=== PATIENT | female | born 1940 | race Caucasian/White ===

== ENCOUNTER 2017-04-25 02:24 | Inpatient (IN) | payer OTHER, MEDICAID, MEDICARE ==
[~2017-04-25] VITALS: Ht 152.4 cm; Wt 64.0 kg
[2017-04-25 04:05] VITALS: BP 164/82; PULSE 85; RESP 16; TEMP 98.3; O2SAT 96
[2017-04-25] MEDS ORDERED: MAGNESIUM HYDROXIDE SUSP 30 ML CUP PO PRN (04:30)
[2017-04-25] MEDS ORDERED: LORazepam 2 MG/ML VIAL - age > 65 yrs IM PRN (04:30)
[2017-04-25] MEDS ORDERED: LORazepam 0.5 MG TAB age > 65 yrs PO PRN (04:30)
[2017-04-25] MEDS ORDERED: ALUMINUM/MAGNESIUM/SIMETH 30 ML CUP PO PRN (04:30)
[2017-04-25] MEDS ORDERED: PILL SPLITTER OTHER PRN (04:30)
[2017-04-25] MEDS ORDERED: ACETAMINOPHEN 325 MG TAB PO PRN ×2 (04:30→10:00)
[2017-04-25] MEDS ORDERED: DEXTROSE 50% IN WATER 50 ML VIAL(D50) IV PUSH PRN (08:30)
[2017-04-25] MEDS ORDERED: GLUCAGON 1 MG/ML VIAL OTHER PRN (08:30)
[2017-04-25] MEDS ORDERED: hydrOXYzine HCL 50 MG TAB PO PRN (10:00)
--- NOTE | 2017-04-25 10:15 | HHI.HP ---
Provisional Diagnosis Admission Date Apr 25, 2017 at 03:20 [place] I. Major depressive disorder recurrent severe f 33.2 Certification of Person's Competence To Provide Express and Informed Consent I have personally examined Apoorva Jordan , a person being served at [facility] on, Apr 25, 2017 09:54. Express and informed consent means consent voluntarily given in writing, by a competent person, after sufficient explanation and disclosure of the subject matter involved to enable the person to make a knowing and willful decision without any element of force, fraud, deceit, duress, or other form of constraint or coercion. This person is 18 years of age or older, is not now known to be incompetent to consent to treatment with a guardian advocate, and does not have a health care surrogate or proxy currently making medical treatment decisions. I have found this person to be one of the following: [] Competent to provide express and informed consent, as defined above, for voluntary admission to this facility and is competent to provide express and informed consent for treatment. He/she has the consistent capacity to make well reasoned, willful, and knowing decisions concerning his or her medical or mental health treatment. The person fully and consistently understands the purpose of the admission for examination/placement and is fully capable of personally exercising all rights assured under [place] [] Incompetent to provide express and informed consent to voluntary admission, and this is incompetent to provide express and informed consent to treatment. The person must be transferred to involuntary status and a petition for a guardian advocate filed with the Circuit Court. [xxx] Refusing to provide express and informed consent to voluntary admission but is competent to provide express and informed consent for treatment. The person must be discharged or transferred to involuntary status. Form shall be completed within 24 hours of a person's arrival at the receiving facility and filed in the clinical record of each person: 1. Admitted on a voluntary basis 2. Permitted to provide express and informed consent to his/her own treatment 3. Allowed to transfer from involuntary to voluntary status 4. Prior to permitting a person to consent to his or her own treatment after having been previously found incompetent to consent to treatment. History of Present Illness Capacity: Lacks Capacity (patient lacks capacity to sign for admission, patient has capacity to sign for medications) Psych Chief Complaint: patient depressed but compliant medications [place] overdosed on all her me HPI Patient is 76 year-old female who comes in under Kidd act signed by Shanae Granda from [facility] dated 04/24/17 and 18 over 3 hours that document reviewed and is states that patient through all of her psych meds away today patient denies this but pretends not to be able to speak Slovenian when probed further despite whole interview in Slovenian. 2 grandkids at bedside confirms patient threw away her psych meds. She has told them that she plans to lock herself in a closet and not come out. Told 3 grandkids that she plans to take all of her pills. Patient seen screened in that facility urine toxicology negative alcohol level negative. Patient transferred here for further care. This is patient's first contact with [facility]. At the present time patient sitting quietly in her room counselor Gabby present throughout session. Patient calm pleasant speaking broken Slovenian. She is distraught and depressed. It appears the patient came down here from the [facility] last May after suffering a stroke and having a pacemaker placed in her. She is living now with her daughter and daughter's granddaughter and as patient states 2 or 3 great- grandchildren. Patient states she does not speak much to her daughter. Patient became more tearful when she talked with the of her . Above that affected her. She denies suicidality to me. Vague about any voices. She is vague about past psychiatric hospitalizations in the [facility] that appears somebody put her on Lamictal and trazodone. States she did have some positive results from that. In any event at the present time patient does meet criteria for involuntary psychiatric hospitalization under the Kidd act I'll do first opinion request second opinion left with this time she does have capacity to sign for medications. We need to gather further information and confirm the accuracy of are present information. Will call patient's family attempt to arrange a meeting for about 1 PM tomorrow afternoon the meantime patient will be admitted. We will a hospitalist consult will thus. Above PT also see her will out of the standard medications would refrain from any psychotropics into her gather further information. Review of Systems ROS Limitations: Altered Mental Status Constitutional: DENIES: Diaphoretic episodes, Fatigue, Fever, Weight gain, Weight loss, Chills, Dizziness, Change in appetite, Night Sweats Endocrine: DENIES: Abnorml menstrual pattern, Heat/cold intolerance, Polydipsia , Polyuria, Polyphagia Ears, nose, mouth, throat: DENIES: Tinnitus, Hearing loss, Vertigo, Nasal discharge, Oral lesions, Throat pain, Hoarseness, Ear Pain, Running Nose, Epistaxis, Sinus Pain, Toothache, Odynophagia Respiratory: DENIES: Apneas, Cough, Snoring, Wheezing, Hemoptysis, Sputum production, Shortness of breath Cardiovascular: DENIES: Chest pain, Palpitations, Syncope, Dyspnea on Exertion , PND, Lower Extremity Edema, Orthopnea, Claudication Gastrointestinal: DENIES: Abdominal pain, Black stools, Bloody stools, Constipation, Diarrhea, Nausea, Vomiting, Difficulty Swallowing, Anorexia Genitourinary: DENIES: Abnormal vaginal bleeding, Dysmenorrhea, Dyspareunia, Sexual dysfunction, Urinary frequency, Urinary incontinence, Urgency, Hematuria , Dysuria, Nocturia, Vaginal discharge Musculoskeletal: DENIES: Joint pain, Muscle aches, Stiffness, Joint Swelling, Back pain, Neck pain Integumentary: DENIES: Abnormal pigmentation, Pruritus, Rash, Nail changes, Breast masses, Breast skin changes, Nipple discharge Hematologic/lymphatic: DENIES: Bruising, Lymphadenopathy Immunologic/allergic: DENIES: Eczema, Urticaria Neurologic: DENIES: Abnormal gait, Headache, Localized weakness, Paresthesias, Seizures, Speech Problems, Tremor, Poor Balance Psychiatric: COMPLAINS OF: Anxiety, Depression, Suicidal Ideation (made vague statements) Past Psych History Psychological trauma history Increased depression after of Violence risk - others (6 mos) Low Violence risk - self (6 mos) Made vague suicidal statement Substance Abuse History Drugs/Alcohol past 12 months None documented Past Family Social History Coded Allergies: Iodinated Contrast- Oral and IV Dye (Verified Allergy, Severe, 04/25/17) erythromycin base (Verified Allergy, Severe, 04/25/17) latex (Verified Allergy, Severe, 04/25/17) Past Medical History History CVA with pacemaker Current Medications Medications (Trade) Dose Ordered Sig/Juice Route Start Time Stop Time Status Last Admin (Ativan) 0.5 mg Q12H PRN PO 04/25/17 04:30 (Ativan Inj) 0.5 mg Q12H PRN IM 04/25/17 04:30 (Desyrel) 25 mg HS PRN PO 04/25/17 04:30 (Tylenol) 650 mg Q4H PRN PO 04/25/17 04:30 (Milk Of Magnesia Liq) 30 ml DAILY PRN PO 04/25/17 04:30 (Mag-Al Plus Susp Liq) 30 ml Q6H PRN PO 04/25/17 04:30 (Pill Splitter) 1 ea UNSCH PRN OTHER 04/25/17 04:30 (D50w (Vial) Inj) 50 ml UNSCH PRN IV PUSH 04/25/17 08:30 (Glucagon Inj) 1 mg UNSCH PRN OTHER 04/25/17 08:30 (NovoLOG SUPPLEMENTAL SCALE) 1 ACHS SLIDING SCALE SQ 04/25/17 12:00 Family Psych History Supposedly since psychiatric services in [place] Social History Patient lives with daughter and son-in-law granddaughter and great grandkids Patient's Strengths (min. 2) Patient verbal labile access healthcare Physical Exam Patient seen screened in [place] refreshed from referral hospital when medically clear. At this time patient sitting quietly in her room with staff as mentioned above. She is in no acute distress, she is in no respiratory distress, no complaints of abdominal pain. Patient moves all 4 extremities without difficulty though she does walk with a walker Vital Signs Vital Signs Date Time Temp Pulse Resp B/P (MAP) Pulse Ox O2 Delivery O2 Flow Rate FiO2 04/25/17 04:05 98.3 85 16 164/82 (109) 96 I/O 04/25/17 04/25/17 04/25/17 07:59 15:59 23:59 Intake Total 360 ml Balance 360 ml Mental Status Examination Appearance: Appropriate Consciousness: Alert Orientation: Person, Place Motor Activity: Other (patient uses walker) Speech: Slow (patient speaking broken Slovenian heavy Gibraltarian accent) Language: Other (mainly Gibraltarian-speaking) Fund of Knowledge: Poor Attention and Concentration: Other (fair) Memory: Impaired Mood: Sad Affect: Other (decreased range and intensity) Thought Process & Associations: Linear Thought Content: Appropriate Hallucination Type: None (denies) Delusion Type: None Suicidal Ideation: Yes (made vague suicidal statements to family) Suicidal Plan: Yes (stated to take all her pills) Suicidal Intention: Yes ([place] take her pills) Homicidal Ideation: No Homicidal Plan: No Homicidal Intention: No Insight: Poor Judgment: Poor Assessment & Plan Problem List: (1) Major depressive disorder, recurrent episode, severe ICD Codes: F33.2 - Major depressive disorder, recurrent severe without psychotic features Assessment & Plan Estimated LOS: days this time patient does meet criteria for involuntary psychiatric hospitalization I'll do first opinion request second opinion. Though I do feel she does have capacity to sign for medication. Hospitalist consult will less attempt to reach patient's family tray for family meeting tomorrow via further information concerning this nice lady Discharge Planning To be determined probable return to family Request HC Surrog/Guard Advoc?: No Juan Jose Vaughan MD Apr 25, 2017 10:15
--- NOTE | 2017-04-25 10:19 | PD.CONS ---
HPI Service [facility] Hospitalists Consult Requested By DR POWERS Reason for Consult MEDICAL MANAGEMENT Primary Care Physician Unknown Diagnoses: History of Present Illness Patient is a 76-year-old female. Brought in initially to the hospital at [facility]. Was evaluated there. Supposedly has a history of schizophrenia and bipolar. Had recently been started on trazodone 50 mg half a tablet at bedtime and Lamictal at bedtime was doing much better than family noted the patient seemed to realize that she was getting better and then decided that she will no longer take these medications.. Patient was Kidd acted. SHe was transferred to [facility] psychiatric facility for evaluation with psychiatry Was also noted that she flushed her medications down the toilet and that she did not care that she expressed a desire to kill her self to her grandchildren and daughter and then patient locked herself in a closet and wanted to kill herself Has depression Review of Systems Constitutional: DENIES: Diaphoretic episodes, Fatigue, Fever, Weight gain, Weight loss, Chills, Dizziness, Change in appetite Endocrine: DENIES: Abnorml menstrual pattern, Heat/cold intolerance, Polydipsia Eyes: DENIES: Blurred vision, Diplopia, Eye inflammation, Eye pain, Vision loss Ears, nose, mouth, throat: DENIES: Tinnitus, Hearing loss, Vertigo, Nasal discharge, Oral lesions Respiratory: DENIES: Apneas, Cough, Snoring, Wheezing, Hemoptysis, Sputum production Cardiovascular: DENIES: Chest pain, Palpitations, Syncope, Dyspnea on Exertion , PND, Lower Extremity Edema Gastrointestinal: DENIES: Abdominal pain, Black stools, Bloody stools, Constipation, Diarrhea, Nausea Genitourinary: DENIES: Abnormal vaginal bleeding, Dysmenorrhea, Dyspareunia Musculoskeletal: DENIES: Joint pain, Muscle aches, Stiffness, Joint Swelling, Back pain Integumentary: DENIES: Abnormal pigmentation, Pruritus, Rash, Nail changes Hematologic/lymphatic: DENIES: Bruising, Lymphadenopathy Immunologic/allergic: DENIES: Eczema, Urticaria Neurologic: DENIES: Abnormal gait, Headache, Localized weakness, Paresthesias, Seizures Psychiatric: COMPLAINS OF: Anxiety, Confusion, Depression Past Family Social History Allergies: Coded Allergies: Iodinated Contrast- Oral and IV Dye (Verified Allergy, Severe, 04/25/17) erythromycin base (Verified Allergy, Severe, 04/25/17) latex (Verified Allergy, Severe, 04/25/17) Past Medical History Diabetes mellitus HYPERCholesterolemia hypertension history of hysterectomy decreased peripheral circulation stroke pacemaker Past Surgical History Pacemaker and hysterectomy Reported Medications Unknown Active Ordered Medications Current Medications Lorazepam (Ativan) 0.5 mg Q12H PRN PO MODERATE TO SEVERE ANXIETY; Start at 04:30 Lorazepam (Ativan Inj) 0.5 mg Q12H PRN IM MODERATE TO SEVERE ANXIETY; Start at 04:30 Trazodone HCl (Desyrel) 25 mg HS PRN PO INSOMNIA; Start 04/25/17 at 04:30 Acetaminophen (Tylenol) 650 mg Q4H PRN PO Pain 1-5 or Temp >101F; Start at 04:30 Magnesium Hydroxide (Milk Of Magnesia Liq) 30 ml DAILY PRN PO CONSTIPATION; Start 04/25/17 at 04:30 Al Hydrox/Mg Hydrox/Simethicone (Mag-Al Plus Susp Liq) 30 ml Q6H PRN PO DYSPEPSIA; Start 04/25/17 at 04:30 Miscellaneous (Pill Splitter) 1 ea UNSCH PRN OTHER SEE LABEL COMMENTS; Start 04/25/17 at 04:30 Dextrose (D50w (Vial) Inj) 50 ml UNSCH PRN IV PUSH HYPOGLYCEMIA-SEE COMMENTS; Start 04/25/17 at 08:30 Glucagon (Glucagon Inj) 1 mg UNSCH PRN OTHER HYPOGLYCEMIA-SEE COMMENTS; Start 04/25/17 at 08:30 Insulin Aspart (NovoLOG SUPPLEMENTAL SCALE) 1 ACHS SLIDING SCALE SQ ; Start at 12:00 Acetaminophen (Tylenol) 650 mg Q4H PRN PO Pain 1-5 or Temp >101F; Start at 10:00; Status UNV Hydroxyzine HCl (Atarax) 50 mg Q6H PRN PO ANXIETY; Start 04/25/17 at 10:00; Status UNV Family History Possible depression in family Probable history of hypertension and diabetes in the family Social History Lives locally with family in [place] Physical Exam Vital Signs Vital Signs Date Time Temp Pulse Resp B/P (MAP) Pulse Ox O2 Delivery O2 Flow Rate FiO2 04/25/17 04:05 98.3 85 16 164/82 (109) 96 Physical Exam GENERAL: This is a well-nourished, well-developed patient, in no apparent distress. SKIN: No rashes, ecchymoses or lesions. Cool and dry. HEAD: Atraumatic. Normocephalic. No temporal or scalp tenderness. EYES: Pupils equal round and reactive. Extraocular motions intact. No scleral icterus. No injection or drainage. Wears glasses ENT: Nose without bleeding, purulent drainage or septal hematoma. Throat without erythema, tonsillar hypertrophy or exudate. Uvula midline. Airway patent. Tongue is midline NECK: Trachea midline. No JVD or lymphadenopathy. Supple, nontender, no meningeal signs. CARDIOVASCULAR: Regular rate and rhythm without murmurs, gallops, or rubs. S1 and S2 no S3 or S4 RESPIRATORY: Clear to auscultation. Breath sounds equal bilaterally. No wheezes , rales, or rhonchi. GASTROINTESTINAL: Abdomen soft, non-tender, nondistended. No hepato-splenomegaly , or palpable masses. No guarding. MUSCULOSKELETAL: Extremities without clubbing, cyanosis, or edema. No joint tenderness, effusion, or edema noted. No calf tenderness. Negative Homans sign bilaterally. NEUROLOGICAL: Awake and alert. Cranial nerves II through XII intact. Motor and sensory grossly within normal limits. Five out of 5 muscle strength in all muscle groups. Normal speech. Insight and judgment is limited Mood and behavior is somewhat appropriate at the moment Laboratory Labs are all pending Imaging No radiological studies at this Assessment and Plan Problem List: (1) Diabetes ICD Code: E11.9 - Type 2 diabetes mellitus without complications (2) Hyperlipidemia ICD Code: E78.5 - Hyperlipidemia, unspecified (3) Hypertension ICD Code: I10 - Essential (primary) hypertension (4) History of CVA (cerebrovascular accident) ICD Code: Z86.73 - Personal history of transient ischemic attack (TIA), and cerebral infarction without residual deficits (5) Major depressive disorder, recurrent episode, severe ICD Code: F33.2 - Major depressive disorder, recurrent severe without psychotic features Assessment and Plan Psychiatric disorder we'll defer to psychiatry-is under a Kidd act Diabetes mellitus try to obtain home medications continue on sliding scale coverage with low-dose sliding scale before meals and at bedtime Hypertension continue on home medications once we figure out what they are Hypercholesterolemia try to obtain home medications History of stroke in past but does not have any gross focal deficits History of pacemaker incision site is good Laboratory data has been ordered for today we'll get a CBC CMP TSH free T4 hemoglobin A1c magnesium and phosphorus level Code Status Full code Discussed Condition With Psychiatry and RNs Khoa Siu DO Apr 25, 2017 10:19
[2017-04-25 11:51] LABS: ALT (GPT) 14 U/L (10-53); ANION GAP 8 MEQ/L (5-15); AST (GOT) 17 U/L (15-37); BICARBONATE 23.5 MEQ/L (21.0-32.0); BICARBONATE 24.8 MEQ/L (21.0-32.0); BLOOD UREA NITROGEN 21 MG/DL (7-18); CHLORIDE 97 MEQ/L (98-107); GLOMERULAR FILTRATION RATE 44 ML/MIN (>89); MAGNESIUM 2.2 MG/DL (1.5-2.5); POTASSIUM 4.1 MEQ/L (3.5-5.1); SODIUM (NA) 130 MEQ/L (136-145)
[2017-04-25 11:55] LABS: AUTOMATED NEUTROPHIL # 5.7 TH/MM3 (1.8-7.7); BASOPHIL # 0.1 TH/MM3 (0-0.2); BASOPHIL % 0.9 % (0.0-2.0); EOSINOPHIL # 0.2 TH/MM3 (0-0.4); HEMATOCRIT 37.6 % (35.0-46.0); HEMO FLAGS DIFF FINAL; LYMPH % 19.2 % (9.0-44.0); LYMPHOCYTE # 1.5 TH/MM3 (1.0-4.8); MEAN CELL VOLUME 90.2 FL (80.0-100.0); MEAN CORPUSCULAR HEMOGLOBIN 30.6 PG (27.0-34.0); MEAN CORPUSCULAR HGB CONC 33.9 % (32.0-36.0); MONO % 5.9 % (0.0-8.0); PLATELET COUNT 145 TH/MM3 (150-450); RED BLOOD COUNT 4.17 MIL/MM3 (4.00-5.30); RED CELL DISTRIBUTION WIDTH 12.7 % (11.6-17.2)
[2017-04-25] MEDS ORDERED: INSULIN ASPART SUPPLEMENTAL SCALE SQ SCH (12:00)
[2017-04-25 12:01] LABS: ALKALINE PHOSPHATASE 100 U/L (45-117); FREE T4 1.24 NG/DL (0.76-1.46); TOTAL BILIRUBIN ADULT 0.6 MG/DL (0.2-1.0)
--- NOTE | 2017-04-25 13:49 | PD.PSY.CON ---
Provisional Diagnosis Admission Date Apr 25, 2017 at 03:20 [place] I. Major depressive disorder recurrent severe f 33.2 History of Present Illness Service Psychiatry Consult Requested By Reason for Consult second opinion Primary Care Physician Unknown HPI Patient is 76 year-old female who comes in under Kidd act signed by Shanae Granda from [facility] dated 04/24/17 and 18 over 3 hours that document reviewed and is states that patient through all of her psych meds away today patient denies this but pretends not to be able to speak Montserratian when probed further despite whole interview in Montserratian. 2 grandkids at bedside confirms patient threw away her psych meds. She has told them that she plans to lock herself in a closet and not come out. Told 3 grandkids that she plans to take all of her pills. Patient seen screened in that facility urine toxicology negative alcohol level negative. Patient transferred here for further care. This is patient's first contact with [facility]. At the present time patient sitting quietly in her room counselor Gabby present throughout session. Patient calm pleasant speaking broken Montserratian. She is distraught and depressed. It appears the patient came down here from the [facility] last May after suffering a stroke and having a pacemaker placed in her. She is living now with her daughter and daughter's granddaughter and as patient states 2 or 3 great- grandchildren. Patient states she does not speak much to her daughter. Patient became more tearful when she talked with the of her . Above that affected her. She denies suicidality to me. Vague about any voices. She is vague about past psychiatric hospitalizations in the [facility] that appears somebody put her on Lamictal and trazodone. States she did have some positive results from that. In any event at the present time patient does meet criteria for involuntary psychiatric hospitalization under the Kidd act I'll do first opinion request second opinion left with this time she does have capacity to sign for medications. We need to gather further information and confirm the accuracy of are present information. Will call patient's family attempt to arrange a meeting for about 1 PM tomorrow afternoon the meantime patient will be admitted. We will a hospitalist consult will thus. Above PT also see her will out of the standard medications would refrain from any psychotropics into her gather further information. The patient is a 76-year-old [place] woman, domiciled, , but , with psychiatric history of bipolar disorder, she is on medications, no previous suicidal attempts, who was brought to the hospital on the Kidd act due to suicidal ideation. Patient says she came to the hospital due to "a brake down". She says she feels much better now. She denies SI/HI/VH/AH. Review of Systems Except as stated in HPI: all other systems reviewed are Neg Past Family Social History Coded Allergies: Iodinated Contrast- Oral and IV Dye (Verified Allergy, Severe, 04/25/17) erythromycin base (Verified Allergy, Severe, 04/25/17) latex (Verified Allergy, Severe, 04/25/17) Current Medications Medications (Trade) Dose Ordered Sig/Juice Route Start Time Stop Time Status Last Admin (Ativan) 0.5 mg Q12H PRN PO 04/25/17 04:30 (Ativan Inj) 0.5 mg Q12H PRN IM 04/25/17 04:30 (Desyrel) 25 mg HS PRN PO 04/25/17 04:30 (Milk Of Magnesia Liq) 30 ml DAILY PRN PO 04/25/17 04:30 (Mag-Al Plus Susp Liq) 30 ml Q6H PRN PO 04/25/17 04:30 (Pill Splitter) 1 ea UNSCH PRN OTHER 04/25/17 04:30 (D50w (Vial) Inj) 50 ml UNSCH PRN IV PUSH 04/25/17 08:30 (Glucagon Inj) 1 mg UNSCH PRN OTHER 04/25/17 08:30 (Tylenol) 650 mg Q4H PRN PO 04/25/17 10:00 (Atarax) 50 mg Q6H PRN PO 04/25/17 10:00 (Levemir Inj) 15 units Q12HR SQ 04/25/17 21:00 (NovoLOG SUPPLEMENTAL SCALE) 1 ACHS SLIDING SCALE SQ 04/25/17 17:00 Social History She was born in [place], [place], , but . Patient's Strengths (min. 2) Patient verbal labile access healthcare Physical Exam Vital Signs Vital Signs Date Time Temp Pulse Resp B/P (MAP) Pulse Ox O2 Delivery O2 Flow Rate FiO2 04/25/17 04:05 98.3 85 16 164/82 (109 96 I/O 04/25/17 04/25/17 04/25/17 07:59 15:59 23:59 Intake Total 360 ml 120 ml Balance 360 ml 120 ml Lab Results Test 04/25/17 10:12 White Blood Count 8.0 TH/MM3 Red Blood Count 4.17 MIL/MM3 Hemoglobin 12.8 GM/DL Hematocrit 37.6 % Mean Corpuscular Volume 90.2 FL Mean Corpuscular Hemoglobin 30.6 PG Mean Corpuscular Hemoglobin Concent 33.9 % Red Cell Distribution Width 12.7 % Platelet Count 145 TH/MM3 Mean Platelet Volume 9.2 FL Neutrophils (%) (Auto) 71.0 % Lymphocytes (%) (Auto) 19.2 % Monocytes (%) (Auto) 5.9 % Eosinophils (%) (Auto) 3.0 % Basophils (%) (Auto) 0.9 % Neutrophils # (Auto) 5.7 TH/MM3 Lymphocytes # (Auto) 1.5 TH/MM3 Monocytes # (Auto) 0.5 TH/MM3 Eosinophils # (Auto) 0.2 TH/MM3 Basophils # (Auto) 0.1 TH/MM3 CBC Comment DIFF FINAL Differential Comment Blood Urea Nitrogen 21 MG/DL Creatinine 1.19 MG/DL Random Glucose 478 MG/DL Total Protein 8.5 GM/DL Albumin 3.8 GM/DL Calcium Level 9.1 MG/DL Phosphorus Level 3.2 MG/DL Magnesium Level 2.2 MG/DL Alkaline Phosphatase 100 U/L Aspartate Amino Transf (AST/SGOT) 17 U/L Alanine Aminotransferase (ALT/SGPT) 14 U/L Total Bilirubin 0.6 MG/DL Sodium Level 130 MEQ/L Potassium Level 4.1 MEQ/L Chloride Level 97 MEQ/L Carbon Dioxide Level 24.8 MEQ/L Anion Gap 8 MEQ/L Estimat Glomerular Filtration Rate 44 ML/MIN Triglycerides Level 134 MG/DL Cholesterol Level 184 MG/DL LDL Cholesterol 106 MG/DL HDL Cholesterol 51.0 MG/DL Cholesterol/HDL Ratio 3.60 RATIO Free Thyroxine 1.24 NG/DL Thyroid Stimulating Hormone 3rd Gen 1.770 uIU/ML Mental Status Examination Appearance: Appropriate Consciousness: Alert Orientation: Person, Place Motor Activity: Other (patient uses walker) Speech: Slow (patient speaking broken Montserratian heavy South Korean accent) Language: Other (mainly South Korean-speaking) Fund of Knowledge: Poor Attention and Concentration: Other (fair) Memory: Impaired Mood: Sad Affect: Other (decreased range and intensity) Thought Process & Associations: Linear Thought Content: Appropriate Hallucination Type: None (denies) Delusion Type: None Suicidal Ideation: Yes (made vague suicidal statements to family) Suicidal Plan: Yes (stated to take all her pills) Suicidal Intention: Yes (Stephanie take her pills) Homicidal Ideation: No Homicidal Plan: No Homicidal Intention: No Insight: Poor Judgment: Poor Assessment & Plan Problem List: (1) Major depressive disorder, recurrent episode, severe ICD Codes: F33.2 - Major depressive disorder, recurrent severe without psychotic features Assessment & Plan: I have seen and examined the patient, documentation reviewed , I concur and agree with Dr. Vaughan's assessment and plan. Assessment & Plan Estimated LOS: days Request HC Surrog/Guard Advoc?: No Aleksander Reilly MD Apr 25, 2017 13:49
[2017-04-25 14:23] LABS: HEMOGLOBIN A1a 1.5 %; HEMOGLOBIN A1b 2.9 %; HEMOGLOBIN Ao 74.9 %; HEMOGLOBIN LA1C 4.4 %; HEMOGLOBIN P3 4.8 %
[2017-04-25] MEDS: INSULIN ASPART SUPPLEMENTAL SCALE SQ SCH ×2 (16:22→20:38)
[2017-04-25 18:11] VITALS: BP 163/72; PULSE 73; RESP 18; TEMP 97.5; O2SAT 99
[2017-04-25 20:17] VITALS: BP 128/61; PULSE 66; RESP 16; TEMP 97.6; O2SAT 98
[2017-04-25] MEDS: INSULIN DETEMIR 100 UNITS/ML VIAL SQ SCH (20:38)
[2017-04-25] MEDS ORDERED: INSULIN DETEMIR 100 UNITS/ML VIAL SQ SCH (21:00)
[2017-04-25 21:29] LABS: BLOOD, URINE NEG (NEG); COMMENT (UR) CULT NOT INDICATED; CULTURE IF INDICATED CULT NOT INDICATED; GLUCOSE,URINE TRACE mg/dL (NEG); KETONE, URINE NEG (NEG); MUCUS URINE FEW /lpf (OCC); NITRITE,URINE NEG (NEG); SQUAMOUS EPITHELIAL CELL URINE 3 /hpf (0-5); URINE COLOR YELLOW (YELLW/STRAW)
[2017-04-26 05:35] VITALS: BP 163/70; PULSE 72; TEMP 98.2; O2SAT 97
[2017-04-26] MEDS ORDERED: INSULIN DETEMIR 100 UNITS/ML VIAL SQ ONE ×2 (07:30→09:00)
[2017-04-26] MEDS: INSULIN ASPART SUPPLEMENTAL SCALE SQ SCH ×4 (07:45→20:41)
[2017-04-26] MEDS: METOPROLOL TARTRATE 50 MG TAB PO SCH ×2 (07:46→20:41)
[2017-04-26 08:53] VITALS: BP 148/79; PULSE 89; RESP 16; O2SAT 99
[2017-04-26] MEDS ORDERED: INSULIN ASPART 1,000 UNITS/10 ML VIAL SQ ONE (09:00)
[2017-04-26 09:38] LABS: POTASSIUM 4.9 MEQ/L (3.5-5.1)
--- NOTE | 2017-04-26 09:48 | HHI.PYPN ---
Subjective Remarks Patient seen in dayroom with floor staff, patient sitting calmly cooperative still with language difficulties but able to say she slept well and ate well. However patient is a severe diabetic. There is increased interventions by the medical service at this time due to her sugar levels running to the high 400s to 500. We also scheduled to meet with patient's family today at 1 PM Chief Complaint: patient depressed but compliant medications Zara overdosed on all her me Review of Systems Except as stated in HPI: all other systems reviewed are Neg Mental Status Examination Appearance: Appropriate Consciousness: Alert Orientation: Person, Place Motor Activity: Other (patient uses walker) Speech: Slow (patient speaking broken Ethiopian heavy Tajik accent) Language: Other (mainly Tajik-speaking) Fund of Knowledge: Poor Attention and Concentration: Other (fair) Memory: Impaired Mood: Sad Affect: Other (decreased range and intensity) Thought Process & Associations: Linear Thought Content: Appropriate Hallucination Type: None (denies) Delusion Type: None Suicidal Ideation: Yes (made vague suicidal statements to family) Suicidal Plan: Yes (stated to take all her pills) Suicidal Intention: Yes (Stephanie take her pills) Homicidal Ideation: No Homicidal Plan: No Homicidal Intention: No Insight: Poor Judgment: Poor Results Labs Test 04/25/17 10:12 04/25/17 20:55 04/26/17 07:25 White Blood Count 8.0 TH/MM3 Red Blood Count 4.17 MIL/MM3 Hemoglobin 12.8 GM/DL Hematocrit 37.6 % Mean Corpuscular Volume 90.2 FL Mean Corpuscular Hemoglobin 30.6 PG Mean Corpuscular Hemoglobin Concent 33.9 % Red Cell Distribution Width 12.7 % Platelet Count 145 TH/MM3 Mean Platelet Volume 9.2 FL Neutrophils (%) (Auto) 71.0 % Lymphocytes (%) (Auto) 19.2 % Monocytes (%) (Auto) 5.9 % Eosinophils (%) (Auto) 3.0 % Basophils (%) (Auto) 0.9 % Neutrophils # (Auto) 5.7 TH/MM3 Lymphocytes # (Auto) 1.5 TH/MM3 Monocytes # (Auto) 0.5 TH/MM3 Eosinophils # (Auto) 0.2 TH/MM3 Basophils # (Auto) 0.1 TH/MM3 CBC Comment DIFF FINAL Differential Comment Blood Urea Nitrogen 21 MG/DL 27 MG/DL Creatinine 1.19 MG/DL 1.31 MG/DL Random Glucose 478 MG/DL 603 MG/DL Total Protein 8.5 GM/DL Albumin 3.8 GM/DL Calcium Level 9.1 MG/DL 9.4 MG/DL Phosphorus Level 3.2 MG/DL Magnesium Level 2.2 MG/DL Alkaline Phosphatase 100 U/L Aspartate Amino Transf (AST/SGOT) 17 U/L Alanine Aminotransferase (ALT/SGPT) 14 U/L Total Bilirubin 0.6 MG/DL Sodium Level 130 MEQ/L 126 MEQ/L Potassium Level 4.1 MEQ/L 4.9 MEQ/L Chloride Level 97 MEQ/L 92 MEQ/L Carbon Dioxide Level 24.8 MEQ/L 21.0 MEQ/L Anion Gap 8 MEQ/L 13 MEQ/L Estimat Glomerular Filtration Rate 44 ML/MIN 40 ML/MIN Hemoglobin A1c 11.2 % Triglycerides Level 134 MG/DL Cholesterol Level 184 MG/DL LDL Cholesterol 106 MG/DL HDL Cholesterol 51.0 MG/DL Cholesterol/HDL Ratio 3.60 RATIO Free Thyroxine 1.24 NG/DL Thyroid Stimulating Hormone 3rd Gen 1.770 uIU/ML Urine Color YELLOW Urine Turbidity HAZY Urine pH 6.0 Urine Specific [place] 1.020 Urine Protein TRACE mg/dL Urine Glucose (UA) TRACE mg/dL Urine Ketones NEG mg/dL Urine Occult Blood NEG Urine Nitrite NEG Urine Bilirubin NEG Urine Urobilinogen LESS THAN 2.0 MG/DL Urine Leukocyte Esterase SMALL Urine RBC LESS THAN 1 /hpf Urine WBC 1 /hpf Urine Squamous Epithelial Cells 3 /hpf Urine Mucus FEW /lpf Microscopic Urinalysis Comment CULT NOT INDICATED Fasting Glucose 603 MG/DL Vitals/IOs Vital Signs Date Time Temp Pulse Resp B/P (MAP) Pulse Ox O2 Delivery O2 Flow Rate FiO2 04/26/17 08:53 89 16 148/79 (102) 99 04/26/17 05:35 98.2 Intake and Output 04/26/17 04/26/17 04/27/17 08:00 16:00 00:00 Intake Total 360 ml Balance 360 ml Assessment & Plan Problem List: (1) Major depressive disorder, recurrent episode, severe ICD Codes: F33.2 - Major depressive disorder, recurrent severe without psychotic features Assessment & Plan Estimated LOS: days patient's mood appears somewhat calmer today there is still the difficulty with language though she is pleasant with attempts to cooperate. There is significant issues related to her [id number] diabetes that is being treated aggressively at this time medical management by the medical team. We'll schedule to meet with patient's family at 1 PM today Justification for Cont. Inpt. At this time patient will decompensate the placed in a lower level of care Discharge Planning Probable discharge to family when she stabilized psychiatrically and also stabilized medically related to her diabetes Request HC Surrog/Guard Advoc?: No Juan Jose Vaughan MD Apr 26, 2017 09:48
[2017-04-26] MEDS ORDERED: lantus (10:38)
[2017-04-26] MEDS ORDERED: METO50TA PO (10:40)
[2017-04-26] MEDS ORDERED: LAMO100T PO (10:41)
[2017-04-26] MEDS ORDERED: TRAZ50TA12 PO (10:43)
[2017-04-26] MEDS ORDERED: BUSP10TA PO (10:45)
[2017-04-26] MEDS ORDERED: LAMO25TA PO (10:47)
[2017-04-26] MEDS ORDERED: PEG-SOL4 PO (10:48)
[2017-04-26] MEDS ORDERED: INSU1INJ5 SQ ×2 (10:56→10:57)
[2017-04-26] MEDS ORDERED: TRAD5TAB PO (11:00)
[2017-04-26] MEDS ORDERED: NOVORP2 SQ (11:00)
[2017-04-26] MEDS ORDERED: TRAM50TA PO (11:02)
[2017-04-26] MEDS ORDERED: ASPI81CH CHEW (11:02)
[2017-04-26] MEDS ORDERED: CEPH500C PO (11:04)
[2017-04-26] MEDS: lamoTRIgine 25 MG TAB PO SCH (15:37)
[2017-04-26] MEDS: ASPIRIN 81 MG CHEW TAB CHEW SCH (15:37)
[2017-04-26 16:14] LABS: BICARBONATE 26.7 MEQ/L (21.0-32.0); POTASSIUM 4.1 MEQ/L (3.5-5.1)
[2017-04-26 18:16] VITALS: BP 104/58; PULSE 77; RESP 18; TEMP 98.2; O2SAT 98
[2017-04-26] MEDS: INSULIN DETEMIR 100 UNITS/ML VIAL SQ SCH (20:40)
[2017-04-26] MEDS: lamoTRIgine 100 MG TAB PO SCH (20:41)
[2017-04-27 04:00] VITALS: BP 128/70; PULSE 76; RESP 18; TEMP 97.6; O2SAT 98
[2017-04-27] MEDS: INSULIN ASPART SUPPLEMENTAL SCALE SQ SCH ×4 (08:00→21:00)
[2017-04-27] MEDS: METOPROLOL TARTRATE 50 MG TAB PO SCH ×2 (08:51→21:19)
[2017-04-27] MEDS: ASPIRIN 81 MG CHEW TAB CHEW SCH (08:51)
[2017-04-27] MEDS: lamoTRIgine 25 MG TAB PO SCH (08:51)
[2017-04-27] MEDS: INSULIN DETEMIR 100 UNITS/ML VIAL SQ SCH ×2 (08:52→21:19)
--- NOTE | 2017-04-27 10:27 | HHI.PYPN ---
Subjective Remarks Patient seen in day room with floor staff and nurse Maria G, patient calm pleasantly confused. Showing no behavioral issues at this time. Her diabetes remains quite volatile and labile. That is being managed by the medicine service. Otherwise patient compliant with medications Chief Complaint: patient depressed but compliant medications Cecilionthiram overdosed on all her me Review of Systems Except as stated in HPI: all other systems reviewed are Neg Mental Status Examination Appearance: Appropriate Consciousness: Alert Orientation: Person, Place Motor Activity: Other (patient uses walker) Speech: Slow (patient speaking broken Lithuanian heavy Croatian accent) Language: Other (mainly Croatian-speaking) Fund of Knowledge: Poor Attention and Concentration: Other (fair) Memory: Impaired Mood: Sad Affect: Other (decreased range and intensity) Thought Process & Associations: Linear Thought Content: Appropriate Hallucination Type: None (denies) Delusion Type: None Suicidal Ideation: Yes (made vague suicidal statements to family) Suicidal Plan: Yes (stated to take all her pills) Suicidal Intention: Yes ([place] take her pills) Homicidal Ideation: No Homicidal Plan: No Homicidal Intention: No Insight: Poor Judgment: Poor Results Labs Test 04/26/17 15:30 04/27/17 08:05 Blood Urea Nitrogen 34 MG/DL Creatinine 1.04 MG/DL Random Glucose 73 MG/DL Calcium Level 9.0 MG/DL Sodium Level 134 MEQ/L Potassium Level 4.1 MEQ/L Chloride Level 101 MEQ/L Carbon Dioxide Level 26.7 MEQ/L Anion Gap 6 MEQ/L Estimat Glomerular Filtration Rate 52 ML/MIN Vitals/IOs Vital Signs Date Time Temp Pulse Resp B/P (MAP) Pulse Ox O2 Delivery O2 Flow Rate FiO2 04/27/17 04:00 97.6 76 18 128/70 (89) 98 Intake and Output 04/27/17 04/27/17 04/28/17 08:00 16:00 00:00 Intake Total 240 ml Balance 240 ml Assessment & Plan Problem List: (1) Major depressive disorder, recurrent episode, severe ICD Codes: F33.2 - Major depressive disorder, recurrent severe without psychotic features Assessment & Plan Estimated LOS: days patient continues depressed somewhat confused, though no behavior problems. Diabetes remains a significant issue at the present time Justification for Cont. Inpt. At the present time the patient will decompensate if placed in a lower level of care Discharge Planning Consideration for patient return to her family. Does not attempt placement in [facility] Request HC Surrog/Guard Advoc?: No Juan Jose Vaughan MD Apr 27, 2017 10:27
[2017-04-27 10:28] LABS: BICARBONATE 26.5 MEQ/L (21.0-32.0); POTASSIUM 5.1 MEQ/L (3.5-5.1)
[2017-04-27] MEDS ORDERED: LANTUS2P SQ (11:20)
--- NOTE | 2017-04-27 12:58 | HHI.PR ---
Subjective Remarks LATE ENTRY PATIENT SEEN 04/26/17 IN AM Follow up hyperglycemia. Patient's glucose has been significantly elevated. She has no complaints at this time. Denies chest pain, dyspnea, nausea, vomiting. Objective Vitals Vital Signs Date Time Temp Pulse Resp B/P (MAP) Pulse Ox O2 Delivery O2 Flow Rate FiO2 04/27/17 04:00 97.6 76 18 128/70 (89) 98 04/26/17 18:16 98.2 77 18 104/58 (73) 98 I/O 04/26/17 04/26/17 04/26/17 04/27/17 04/27/17 04/27/17 06:59 14:59 22:59 06:59 14:59 22:59 Intake Total 660 ml 1650 ml 240 ml Balance 660 ml 1650 ml 240 ml Intake Oral 660 ml 1650 ml 240 ml # Voids 1 4 1 # Bowel Movements 0 Result Diagram: 04/25/17 1012 04/27/17 0805 Objective Remarks General: Elderly female in no acute distress. Heart: Regular rate and rhythm. No murmur. Lungs: Clear to auscultation bilaterally. No wheezes, rales, or rhonchi. Breathing is nonlabored. Abdomen: Soft, nontender, nondistended. Extremities: No lower extremity edema. Psych: Alert and oriented. Procedures None Urinary Catheter: No Vascular Central Line Catheter: No A/P Problem List: (1) Diabetes ICD Code: E11.9 - Type 2 diabetes mellitus without complications (2) Hyperlipidemia ICD Code: E78.5 - Hyperlipidemia, unspecified (3) Hypertension ICD Code: I10 - Essential (primary) hypertension (4) History of CVA (cerebrovascular accident) ICD Code: Z86.73 - Personal history of transient ischemic attack (TIA), and cerebral infarction without residual deficits (5) Major depressive disorder, recurrent episode, severe ICD Code: F33.2 - Major depressive disorder, recurrent severe without psychotic features Assessment and Plan 1. Major depressive disorder, Kidd act: Management per psychiatry. 2. Diabetes mellitus: Poorly controlled. Patient's glucose is significantly elevated. She was not given her p.m. dose of Levemir last night as her Accu- Chek was 70. Resume Levemir. Add one-time dose of NovoLog. Cover Accu-Cheks with sliding scale insulin. 3. Hypertension: Resume home medications. Gustabo Luo MD Apr 27, 2017 12:58
--- NOTE | 2017-04-27 16:34 | HHI.PR ---
Subjective Remarks Follow-up on patient with hyperglycemia. Patient seen and examined. Patient has no complaints at this time. She denies any fever or chills. Denies any chest pain or shortness of breath. Denies any nausea, vomiting or abdominal pain. Objective Vitals Vital Signs Date Time Temp Pulse Resp B/P (MAP) Pulse Ox O2 Delivery O2 Flow Rate FiO2 04/27/17 04:00 97.6 76 18 128/70 (89) 98 04/26/17 18:16 98.2 77 18 104/58 (73) 98 I/O 04/26/17 04/26/17 04/26/17 04/27/17 04/27/17 04/27/17 06:59 14:59 22:59 06:59 14:59 22:59 Intake Total 660 ml 1650 ml 240 ml Balance 660 ml 1650 ml 240 ml Intake Oral 660 ml 1650 ml 240 ml # Voids 1 4 1 # Bowel Movements 0 Result Diagram: 04/25/17 1012 04/27/17 0805 Objective Remarks GENERAL: Well-nourished, well-developed elderly female patient in NAD. Ambulating in room with walker. Awake and alert. SKIN: Warm and dry. . HEAD: Normocephalic. Atraumatic. EYES: EOMI. No scleral icterus. No injection or drainage. ENT: No nasal bleeding or discharge. Mucous membranes pink and moist. NECK: Supple. Trachea midline. CARDIOVASCULAR: Regular rate and rhythm. S1, S2 noted. No murmur appreciated. RESPIRATORY: No accessory muscle use. Clear to auscultation. Breath sounds equal bilaterally. GASTROINTESTINAL: Abdomen soft, non-tender, nondistended. Normoactive bowel sounds x4. MUSCULOSKELETAL: No obvious deformities. Extremities without clubbing, cyanosis , or edema. NEUROLOGICAL: Awake and alert. Able to move all extremities. Normal speech. PSYCHIATRIC: Appropriate mood and affect; insight and judgment normal. Procedures None Medications and IVs Current Medications Medications (Trade) Dose Ordered Sig/Juice Route Start Time Stop Time Status Last Admin (Ativan) 0.5 mg Q12H PRN PO 04/25/17 04:30 (Ativan Inj) 0.5 mg Q12H PRN IM 04/25/17 04:30 (Desyrel) 25 mg HS PRN PO 04/25/17 04:30 (Milk Of Magnesia Liq) 30 ml DAILY PRN PO 04/25/17 04:30 (Mag-Al Plus Susp Liq) 30 ml Q6H PRN PO 04/25/17 04:30 (Pill Splitter) 1 ea UNSCH PRN OTHER 04/25/17 04:30 (D50w (Vial) Inj) 50 ml UNSCH PRN IV PUSH 04/25/17 08:30 (Glucagon Inj) 1 mg UNSCH PRN OTHER 04/25/17 08:30 (Tylenol) 650 mg Q4H PRN PO 04/25/17 10:00 (Atarax) 50 mg Q6H PRN PO 04/25/17 10:00 04/26/17 05:53 (NovoLOG SUPPLEMENTAL SCALE) 1 ACHS SLIDING SCALE SQ 04/25/17 17:00 04/27/17 11:41 (Levemir Inj) 40 units Q12HR SQ 04/25/17 21:00 Future hold 04/27/17 08:52 (Lopressor) 50 mg Q12HR PO 04/26/17 09:00 04/27/17 08:51 (Aspirin Chew) 81 mg DAILY CHEW 04/26/17 11:30 04/27/17 08:51 (LaMICtal) 25 mg DAILY PO 04/26/17 15:00 04/27/17 08:51 (LaMICtal) 100 mg HS PO 04/26/17 21:00 04/26/17 20:41 Patient Own Medication PT OWN MED: Linaglip... DAILY PO 04/26/17 11:30 Future Hold A/P Problem List: (1) Diabetes ICD Code: E11.9 - Type 2 diabetes mellitus without complications (2) Hyperlipidemia ICD Code: E78.5 - Hyperlipidemia, unspecified (3) Hypertension ICD Code: I10 - Essential (primary) hypertension (4) History of CVA (cerebrovascular accident) ICD Code: Z86.73 - Personal history of transient ischemic attack (TIA), and cerebral infarction without residual deficits (5) Major depressive disorder, recurrent episode, severe ICD Code: F33.2 - Major depressive disorder, recurrent severe without psychotic features Assessment and Plan 76-year-old female with diabetes, hypertension, dyslipidemia, history of CVA, schizophrenia and bipolar disorder admitted under Kidd act for suicidal ideation. Psychiatric disorder Depression - Management per psychiatric team Hypertension - Controlled - Continue home medications - Continue to monitor BP Diabetes - Poorly controlled. HgbA1c 11.2 - Hypoglycemic this morning at 45 then blood sugar increased to 311. Currently 176. - Continue Levemir 40 mg subcutaneous twice a day per patient's home regimen. Discussed as much with nursing staff to please give medication as ordered. If at anytime nursing staff has questions regarding blood sugar management, please contact hospitalist directly. - Continue Accu-Cheks and insulin sliding coverage - Continue diabetic diet GLO on ?CKD - Creatinine trending down - Unknown baseline - Avoid nephrotoxic agents - Encourage po intake - repeat BMP in 2 to 3 days DVT prophylaxis - Patient is ambulatory Discussed with patient, Maria G ELKINS and Sarita Valenzuela Apr 27, 2017 16:34
[2017-04-27 18:08] VITALS: BP 160/74; PULSE 66; RESP 18; TEMP 97.7; O2SAT 98
[2017-04-27] MEDS: lamoTRIgine 100 MG TAB PO SCH (21:19)
[2017-04-27] MEDS: traZODone HCL 50 MG TAB PO PRN (21:19)
[2017-04-28 06:44] VITALS: BP 144/65; PULSE 78; RESP 19; TEMP 98.1; O2SAT 97
[2017-04-28] MEDS: INSULIN ASPART SUPPLEMENTAL SCALE SQ SCH ×4 (08:00→20:20)
[2017-04-28] MEDS: lamoTRIgine 25 MG TAB PO SCH (08:30)
[2017-04-28] MEDS: ASPIRIN 81 MG CHEW TAB CHEW SCH (08:30)
[2017-04-28] MEDS: METOPROLOL TARTRATE 50 MG TAB PO SCH ×2 (08:30→20:21)
[2017-04-28] MEDS: INSULIN DETEMIR 100 UNITS/ML VIAL SQ SCH ×2 (08:31→20:21)
--- NOTE | 2017-04-28 10:50 | HHI.PR ---
Subjective Remarks Follow-up on patient with hyperglycemia. Patient seen and examined. Patient states she feels well. She has no complaints of pain. She denies any lightheadedness or dizziness. She denies any chest pain or shortness of breath. She denies any fever or chills. Denies any nausea, vomiting or abdominal pain. Objective Vitals Vital Signs Date Time Temp Pulse Resp B/P (MAP) Pulse Ox O2 Delivery O2 Flow Rate FiO2 04/28/17 06:44 98.1 78 19 144/65 (91) 97 04/27/17 18:08 97.7 66 18 160/74 (102) 98 I/O 04/27/17 04/27/17 04/27/17 04/28/17 04/28/17 04/28/17 07:00 15:00 23:00 07:00 15:00 23:00 Intake Total 240 ml 840 ml 120 ml Balance 240 ml 840 ml 120 ml Intake Oral 240 ml 840 ml 120 ml # Voids 1 1 Result Diagram: 04/25/17 1012 04/27/17 0805 Objective Remarks GENERAL: Well-nourished, well-developed elderly female patient in [facility]. Sitting on hospital bed. Awake and alert. SKIN: Warm and dry. . HEAD: Normocephalic. Atraumatic. EYES: EOMI. No scleral icterus. No injection or drainage. ENT: No nasal bleeding or discharge. Mucous membranes pink and moist. NECK: Supple. Trachea midline. CARDIOVASCULAR: Regular rate and rhythm. S1, S2 noted. No murmur appreciated. RESPIRATORY: No accessory muscle use. Clear to auscultation. Breath sounds equal bilaterally. GASTROINTESTINAL: Abdomen soft, non-tender, nondistended. Normoactive bowel sounds x4. MUSCULOSKELETAL: No obvious deformities. Extremities without clubbing, cyanosis , or edema. NEUROLOGICAL: Awake and alert. Able to move all extremities. Normal speech. PSYCHIATRIC: Appropriate mood and affect; insight and judgment normal. Procedures None Medications and IVs Current Medications Medications (Trade) Dose Ordered Sig/Juice Route Start Time Stop Time Status Last Admin (Ativan) 0.5 mg Q12H PRN PO 04/25/17 04:30 (Ativan Inj) 0.5 mg Q12H PRN IM 04/25/17 04:30 (Desyrel) 25 mg HS PRN PO 04/25/17 04:30 04/27/17 21:19 (Milk Of Magnesia Liq) 30 ml DAILY PRN PO 04/25/17 04:30 (Mag-Al Plus Susp Liq) 30 ml Q6H PRN PO 04/25/17 04:30 (Pill Splitter) 1 ea UNSCH PRN OTHER 04/25/17 04:30 (D50w (Vial) Inj) 50 ml UNSCH PRN IV PUSH 04/25/17 08:30 (Glucagon Inj) 1 mg UNSCH PRN OTHER 04/25/17 08:30 (Tylenol) 650 mg Q4H PRN PO 04/25/17 10:00 (Atarax) 50 mg Q6H PRN PO 04/25/17 10:00 04/26/17 05:53 (NovoLOG SUPPLEMENTAL SCALE) 1 ACHS SLIDING SCALE SQ 04/25/17 17:00 04/28/17 08:00 (Levemir Inj) 40 units Q12HR SQ 04/25/17 21:00 Future hold 04/28/17 08:31 (Lopressor) 50 mg Q12HR PO 04/26/17 09:00 04/28/17 08:30 (Aspirin Chew) 81 mg DAILY CHEW 04/26/17 11:30 04/28/17 08:30 (LaMICtal) 25 mg DAILY PO 04/26/17 15:00 04/28/17 08:30 (LaMICtal) 100 mg HS PO 04/26/17 21:00 04/27/17 21:19 Patient Own Medication PT OWN MED: Linaglip... DAILY PO 04/26/17 11:30 Future Hold A/P Problem List: (1) Diabetes ICD Code: E11.9 - Type 2 diabetes mellitus without complications (2) Hyperlipidemia ICD Code: E78.5 - Hyperlipidemia, unspecified (3) Hypertension ICD Code: I10 - Essential (primary) hypertension (4) History of CVA (cerebrovascular accident) ICD Code: Z86.73 - Personal history of transient ischemic attack (TIA), and cerebral infarction without residual deficits (5) Major depressive disorder, recurrent episode, severe ICD Code: F33.2 - Major depressive disorder, recurrent severe without psychotic features Assessment and Plan 76-year-old female with diabetes, hypertension, dyslipidemia, history of CVA, schizophrenia and bipolar disorder admitted under Kidd act for suicidal ideation. Psychiatric disorder Depression - Management per psychiatric team Hypertension - Adequately controlled - Continue home medications - Continue to monitor BP Diabetes - Poorly controlled. HgbA1c 11.2 - Discussed with nursing staff. Patient administered 20 units of Levemir last night(although documented as 40 units in the EMR). Blood sugar 49 and patient diaphoretic at 550am. Not documented in the EMR. Patient given orange juice. Blood sugar improved to 184 at 636am. Blood sugar 236 at 8AM. Patient given 40 units Levemir this morning. Discussed with nursing staff giving small late-night snack prior to bed such as half a sandwich - added to dietary order. Decrease evening dose of Levemir to 30u. Continue Levemir 40u in am. - Continue Accu-Cheks and insulin sliding coverage - Continue diabetic diet GLO on ?CKD - Creatinine trending down - Unknown baseline - Avoid nephrotoxic agents - Encourage po intake - repeat BMP in 2 to 3 days Hyperkalemia - low K diet - repeat potassium this afternoon and in am DVT prophylaxis - Patient is ambulatory Discussed with patient, Maria G ELKINS and Sarita Valenzuela Apr 28, 2017 10:50
[2017-04-28] MEDS ORDERED: DOCUSATE SODIUM 50 MG/SENNA 8.6 MG TAB PO ONE (11:00)
--- NOTE | 2017-04-28 11:41 | HHI.PYPN ---
Subjective Remarks Patient was seen and case discussed with nursing. Interview conducted in [place]ian. Patient is alert and oriented 3. Insight remains poor. She minimizes her suicidal ideation before admission. Today patient describes mood has improved and she denies suicidal or homicidal ideation thought intent or plan. Tolerating medications well. Chief Complaint: patient depressed but compliant medications [place] overdosed on all her me Mental Status Examination Appearance: Appropriate Consciousness: Alert Orientation: Person, Place, Date/Time Motor Activity: Other (patient uses walker) Speech: Slow (patient speaking broken Telugu heavy [place]ian accent) Language: Other (mainly [place]ibian-speaking) Fund of Knowledge: Poor Attention and Concentration: Other (fair) Memory: Impaired Mood: Sad Affect: Other (decreased range and intensity) Thought Process & Associations: Linear Thought Content: Appropriate Hallucination Type: None (denies) Delusion Type: None Suicidal Ideation: Yes (made vague suicidal statements to family, denies today) Suicidal Plan: No (denies today) Suicidal Intention: No (denies) Homicidal Ideation: No Homicidal Plan: No Homicidal Intention: No Insight: Poor Judgment: Poor Results Vitals/IOs Vital Signs Date Time Temp Pulse Resp B/P (MAP) Pulse Ox O2 Delivery O2 Flow Rate FiO2 04/28/17 06:44 98.1 78 19 144/65 (91) 97 Intake and Output 04/28/17 04/28/17 04/29/17 08:00 16:00 00:00 Intake Total 120 ml Balance 120 ml Assessment & Plan Problem List: (1) Major depressive disorder, recurrent episode, severe ICD Codes: F33.2 - Major depressive disorder, recurrent severe without psychotic features Assessment & Plan Continue current treatment plan Justification for Cont. Inpt. Patient would decompensate in a less restrictive setting Request HC Surrog/Guard Advoc?: No Dany Waters DO Apr 28, 2017 11:41
[2017-04-28] MEDS: DOCUSATE SODIUM 50 MG/SENNA 8.6 MG TAB PO SCH (20:21)
[2017-04-28] MEDS: traZODone HCL 50 MG TAB PO PRN (20:21)
[2017-04-28] MEDS: lamoTRIgine 100 MG TAB PO SCH (20:21)
[2017-04-29 06:07] VITALS: BP 119/66; PULSE 62; RESP 17; TEMP 97.9; O2SAT 96
[2017-04-29] MEDS: SODIUM POLYSTYRENE SULFONATE SUSP 15 GM/60 ML CUP PO ONE ×2 (07:45→14:15)
[2017-04-29] MEDS: INSULIN DETEMIR 100 UNITS/ML VIAL SQ SCH ×2 (08:00→20:46)
[2017-04-29] MEDS ORDERED: INSULIN DETEMIR 100 UNITS/ML VIAL SQ SCH (08:00)
[2017-04-29] MEDS ORDERED: GLUCAGON 1 MG/ML VIAL OTHER PRN (08:45)
[2017-04-29] MEDS ORDERED: DEXTROSE 50% IN WATER 50 ML VIAL(D50) IV PUSH PRN (08:45)
--- NOTE | 2017-04-29 09:44 | HHI.PR ---
Subjective Remarks Follow-up on patient with hyperglycemia. Patient seen and examined. Patient with low blood sugar last night of 51. Patient endorses receiving snack of corn flakes and orange juice last night. Patient reports some left-sided upper back pain occurring intermittently for the past month aggravated by position changes. She denies any rash over the area. She denies any nausea or vomiting. She denies any chest pain or shortness of breath. She denies any fever or chills. She reports bowel movement this morning. She denies any any urinary complaints. Discussed with BRITTNI Cummins. Objective Vitals Vital Signs Date Time Temp Pulse Resp B/P (MAP) Pulse Ox O2 Delivery O2 Flow Rate FiO2 04/29/17 06:07 97.9 62 17 119/66 (83) 96 I/O 04/28/17 04/28/17 04/28/17 04/29/17 04/29/17 04/29/17 07:00 15:00 23:00 07:00 15:00 23:00 Intake Total 120 ml 240 ml 480 ml 60 ml Balance 120 ml 240 ml 480 ml 60 ml Intake Oral 120 ml 240 ml 480 ml 60 ml # Voids 1 1 3 Result Diagram: 04/25/17 1012 04/28/17 1753 Objective Remarks GENERAL: Well-nourished, well-developed elderly female patient in NAD. Sitting in the day room. Awake and alert. SKIN: Warm and dry. Upper chest positive for well-healed surgical scar from previous pacemaker implantation. HEAD: Normocephalic. Atraumatic. EYES: EOMI. No scleral icterus. No injection or drainage. ENT: No nasal bleeding or discharge. Mucous membranes pink and moist. NECK: Supple. Trachea midline. CARDIOVASCULAR: Regular rate and rhythm. S1, S2 noted. No murmur appreciated. RESPIRATORY: No accessory muscle use. Clear to auscultation. Breath sounds equal bilaterally. GASTROINTESTINAL: Abdomen soft, non-tender, nondistended. Normoactive bowel sounds x4. MUSCULOSKELETAL: No obvious deformities. Extremities without clubbing, cyanosis , or edema. Patient has some tenderness to palpation of the upper lumbar paraspinous muscles. NEUROLOGICAL: Awake and alert. Able to move all extremities. Normal speech. PSYCHIATRIC: Appropriate mood and affect; insight and judgment normal. Procedures None Medications and IVs Current Medications Medications (Trade) Dose Ordered Sig/Juice Route Start Time Stop Time Status Last Admin (Ativan) 0.5 mg Q12H PRN PO 04/25/17 04:30 (Ativan Inj) 0.5 mg Q12H PRN IM 04/25/17 04:30 (Desyrel) 25 mg HS PRN PO 04/25/17 04:30 04/28/17 20:21 (Milk Of Magnesia Liq) 30 ml DAILY PRN PO 04/25/17 04:30 (Mag-Al Plus Susp Liq) 30 ml Q6H PRN PO 04/25/17 04:30 (Pill Splitter) 1 ea UNSCH PRN OTHER 04/25/17 04:30 (D50w (Vial) Inj) 50 ml UNSCH PRN IV PUSH 04/25/17 08:30 (Glucagon Inj) 1 mg UNSCH PRN OTHER 04/25/17 08:30 (Tylenol) 650 mg Q4H PRN PO 04/25/17 10:00 (Atarax) 50 mg Q6H PRN PO 04/25/17 10:00 04/26/17 05:53 (Lopressor) 50 mg Q12HR PO 04/26/17 09:00 04/28/17 20:21 (Aspirin Chew) 81 mg DAILY CHEW 04/26/17 11:30 04/28/17 08:30 (LaMICtal) 25 mg DAILY PO 04/26/17 15:00 04/28/17 08:30 (LaMICtal) 100 mg HS PO 04/26/17 21:00 04/28/17 20:21 Patient Own Medication PT OWN MED: Linaglip... DAILY PO 04/26/17 11:30 Future Hold (Yu-Colace) 1 tab BID PO 04/28/17 21:00 04/28/17 20:21 (Levemir Inj) 30 units HS SQ 04/28/17 21:00 04/28/17 20:21 (Levemir Inj) 30 units DAILYAC SQ 04/29/17 08:00 (NovoLOG SUPPLEMENTAL SCALE) 1 ACHS SLIDING SCALE SQ 04/29/17 12:00 A/P Problem List: (1) Diabetes ICD Code: E11.9 - Type 2 diabetes mellitus without complications (2) Hyperlipidemia ICD Code: E78.5 - Hyperlipidemia, unspecified (3) Hypertension ICD Code: I10 - Essential (primary) hypertension (4) History of CVA (cerebrovascular accident) ICD Code: Z86.73 - Personal history of transient ischemic attack (TIA), and cerebral infarction without residual deficits (5) Major depressive disorder, recurrent episode, severe ICD Code: F33.2 - Major depressive disorder, recurrent severe without psychotic features Assessment and Plan 76-year-old female with diabetes, hypertension, dyslipidemia, history of CVA, schizophrenia and bipolar disorder admitted under [place] act for suicidal ideation. Psychiatric disorder Depression - Management per psychiatric team Hypertension - Adequately controlled - Continue home medications - Continue to monitor BP Diabetes - Poorly controlled. HgbA1c 11.2 - Episode of hypoglycemia last night. Decrease Levemir dose to 30 units twice a day. Decrease insulin sliding scale. Recommend healthy light snack at dinner such as half a sandwich. Discussed with BRITTNI Cummins. - Continue Accu-Cheks and insulin sliding coverage - Continue diabetic diet GLO on ?CKD - Creatinine trending down. Today's labs pending - Unknown baseline - Avoid nephrotoxic agents - Encourage po intake - continue to monitor kidney function Hyperkalemia - Potassium trending up, K 5.9. Kayexalate ordered. Today's potassium pending. - continue low K diet. Discussed with patient decreasing dietary sources of potassium. Left sided back pain - likely musculoskeletal - trial Lidoderm patch - application of moist heat prn DVT prophylaxis - Patient is ambulatory Discussed with patient, Maria G ELKINS and Sarita Valenzuela Apr 29, 2017 09:44
[2017-04-29] MEDS: ASPIRIN 81 MG CHEW TAB CHEW SCH (09:52)
[2017-04-29] MEDS: DOCUSATE SODIUM 50 MG/SENNA 8.6 MG TAB PO SCH ×2 (09:52→20:45)
[2017-04-29] MEDS: lamoTRIgine 25 MG TAB PO SCH (09:52)
[2017-04-29] MEDS: METOPROLOL TARTRATE 50 MG TAB PO SCH ×2 (09:52→20:45)
[2017-04-29 10:18] LABS: POTASSIUM 5.3 MEQ/L (3.5-5.1)
[2017-04-29] MEDS: INSULIN ASPART SUPPLEMENTAL SCALE SQ SCH ×3 (11:37→20:46)
[2017-04-29] MEDS ORDERED: IBUPROFEN 600 MG TAB PO PRN (13:30)
[2017-04-29] MEDS: LIDOCAINE HCL 5% PATCH T-DERMAL SCH (13:30)
--- NOTE | 2017-04-29 16:52 | HHI.PYPN ---
Subjective Remarks Patient was seen and case discussed with nursing. Patient continues to be managed by the medical team. Patient has no complaints today. She is bright and cheerful during the interview. He is sleeping well. Social per nursing. Mood is "good." She denies suicidal homicidal ideations thought intent or plan however she has poor insight into the reasons for admission and minimizes her behavior Chief Complaint: patient depressed but compliant medications Trental overdosed on all her me Mental Status Examination Appearance: Appropriate Consciousness: Alert Orientation: Person, Place, Date/Time Motor Activity: Other (patient uses walker) Speech: Unremarkable Language: Adequate Fund of Knowledge: Poor Attention and Concentration: Other (fair) Memory: Impaired Mood: Sad Affect: Other (decreased range and intensity) Thought Process & Associations: Linear Thought Content: Appropriate Hallucination Type: None (denies) Delusion Type: None Suicidal Ideation: Yes (made vague suicidal statements to family, denies today) Suicidal Plan: No (denies today) Suicidal Intention: No (denies) Homicidal Ideation: No Homicidal Plan: No Homicidal Intention: No Insight: Poor Judgment: Poor Results Labs Test 04/28/17 17:53 04/29/17 08:39 Potassium Level 5.9 MEQ/L 5.3 MEQ/L Blood Urea Nitrogen 18 MG/DL Creatinine 0.95 MG/DL Random Glucose 349 MG/DL Calcium Level 9.1 MG/DL Sodium Level 133 MEQ/L Chloride Level 96 MEQ/L Carbon Dioxide Level 27.0 MEQ/L Anion Gap 10 MEQ/L Estimat Glomerular Filtration Rate 57 ML/MIN Vitals/IOs Vital Signs Date Time Temp Pulse Resp B/P (MAP) Pulse Ox O2 Delivery O2 Flow Rate FiO2 04/29/17 06:07 97.9 62 17 119/66 (83) 96 Intake and Output 04/29/17 04/29/17 04/30/17 08:00 16:00 00:00 Intake Total 60 ml Balance 60 ml Assessment & Plan Problem List: (1) Major depressive disorder, recurrent episode, severe ICD Codes: F33.2 - Major depressive disorder, recurrent severe without psychotic features Assessment & Plan Continue current treatment plan Justification for Cont. Inpt. Patient would decompensate in a less restrictive setting Request HC Surrog/Guard Advoc?: No Dany Waters DO Apr 29, 2017 16:52
[2017-04-29 19:40] VITALS: BP 131/62; PULSE 74; RESP 18; TEMP 98.4
[2017-04-29] MEDS: lamoTRIgine 100 MG TAB PO SCH (20:45)
[2017-04-29] MEDS: traZODone HCL 50 MG TAB PO PRN (20:45)
[2017-04-29] MEDS: REMOVE OLD LIDOCAINE PATCH T-DERMAL SCH (20:58)
[2017-04-30 05:46] VITALS: BP 137/65; PULSE 60; RESP 17; TEMP 98.2
[2017-04-30] MEDS: INSULIN DETEMIR 100 UNITS/ML VIAL SQ SCH (08:10)
[2017-04-30] MEDS: INSULIN ASPART SUPPLEMENTAL SCALE SQ SCH ×4 (08:11→21:18)
[2017-04-30] MEDS: lamoTRIgine 25 MG TAB PO SCH (08:11)
[2017-04-30] MEDS: ASPIRIN 81 MG CHEW TAB CHEW SCH (08:12)
[2017-04-30] MEDS: METOPROLOL TARTRATE 50 MG TAB PO SCH ×2 (08:12→21:16)
[2017-04-30] MEDS: DOCUSATE SODIUM 50 MG/SENNA 8.6 MG TAB PO SCH ×2 (08:12→21:16)
[2017-04-30 10:40] LABS: POTASSIUM 4.8 MEQ/L (3.5-5.1)
--- NOTE | 2017-04-30 10:57 | HHI.PR ---
Subjective Remarks Follow-up visit uncontrolled diabetes. Patient seen and examined today. Reports she had hypoglycemia episode this morning at around 5:00 where and she was given juice and cake. Her repeat glucose was 120s at 7:00. States she has been a difficult diabetic where in her doctor's were actually thinking of giving her insulin pump. Patient states she declines to insulin pump and will address insulin injections. States she checks her sugar at home. Denies pain and discomfort. Denies SOB/ dyspnea. Denies chest pain, palpitations, headaches, dizziness. Denies fevers, chills, n/v/d. Denies dysuria. Objective Vitals Vital Signs Date Time Temp Pulse Resp B/P (MAP) Pulse Ox O2 Delivery O2 Flow Rate FiO2 04/30/17 05:46 98.2 60 17 137/65 (89) 04/29/17 19:40 98.4 74 18 131/62 (85) I/O 04/29/17 04/29/17 04/29/17 04/30/17 04/30/17 04/30/17 07:00 15:00 23:00 07:00 15:00 23:00 Intake Total 60 ml 480 ml 361 ml 360 ml Balance 60 ml 480 ml 361 ml 360 ml Intake Oral 60 ml 480 ml 361 ml 360 ml # Voids 3 5 Result Diagram: 04/30/17 0847 Objective Remarks GENERAL: This is a well-nourished, well-developed patient, in no apparent distress. SKIN: Warm and dry. HEENT: Normocephalic. Pupils equal round and reactive. Nose without bleeding. Airway patent. NECK: Trachea midline. No JVD. Supple. CARDIOVASCULAR: Regular rate and rhythm with murmurs, no gallops, or rubs. RESPIRATORY: Clear to auscultation. Breath sounds equal bilaterally. No wheezes , rales, or rhonchi. GASTROINTESTINAL: Abdomen soft, non-tender, nondistended. Bowel Sounds normoactive x4. MUSCULOSKELETAL: Extremities without clubbing, cyanosis, or edema. NEUROLOGICAL: Awake and alert. Oriented to time, place, person. No focal neuro deficit. Moves all extremities. Normal speech. Procedures None A/P Problem List: (1) Diabetes ICD Code: E11.9 - Type 2 diabetes mellitus without complications (2) Hyperlipidemia ICD Code: E78.5 - Hyperlipidemia, unspecified (3) Hypertension ICD Code: I10 - Essential (primary) hypertension (4) History of CVA (cerebrovascular accident) ICD Code: Z86.73 - Personal history of transient ischemic attack (TIA), and cerebral infarction without residual deficits (5) Major depressive disorder, recurrent episode, severe ICD Code: F33.2 - Major depressive disorder, recurrent severe without psychotic features Assessment and Plan 76-year-old female with diabetes, hypertension, dyslipidemia, history of CVA, schizophrenia and bipolar disorder admitted under [place] act for suicidal ideation. Psychiatric disorder Depression - Management per psychiatric team Hypertension - Adequately controlled - Continue home medications - Continue to monitor BP Diabetes, uncontrolled - HgbA1c 11.2 - Episode of hypoglycemia this AM. Decrease Levemir dose to 20 units at night, maintain day time dose twice a day. - Start prandial insulin. Keep low ISS. - Continue Accu-Cheks. Under 5 hypoglycemia - Continue diabetic diet GLO on ?CKD - Creatinine trending down. Today's labs pending - Unknown baseline - Avoid nephrotoxic agents - Encourage po intake - continue to monitor kidney function Hyperkalemia - Potassium trending up, K 5.9. Kayexalate ordered. - continue low K diet. Discussed with patient decreasing dietary sources of potassium. - Potassium within normal Left sided back pain - likely musculoskeletal - trial Lidoderm patch - application of moist heat prn - on ibuprofen will decrease dose secondary to CK D DVT prophylaxis - Patient is ambulatory Discussed with patient, nursing, Evan Marie Apr 30, 2017 10:57
[2017-04-30] MEDS: INSULIN ASPART 1,000 UNITS/10 ML VIAL SQ SCH ×2 (11:44→16:23)
[2017-04-30] MEDS: LIDOCAINE HCL 5% PATCH T-DERMAL SCH (11:47)
[2017-04-30 11:48] LABS: BICARBONATE 27.2 MEQ/L (21.0-32.0)
--- NOTE | 2017-04-30 13:13 | PD.PN.STU ---
Subjective Remarks pt is a 72 y.o female who has been at [facility] since 04/25/17. Pt was admitted under [place] act by daughter. Per report, pt was planning on throwing her psych medications away and wanted to lock herself in the closet and not come out. During her stay pt has been very pleasant and cooperative Today, pt was seen and case was discussed with nurse. On interview she appears pleasant, calm, and speaks in broken [place]. She became tearful when talking about how she came here, stating that "my daughter called the [employer] who handcuffed me and put me in the police car". Denies depressed mood, lack of energy, decrease appetite or energy, suicidal or homicidal ideation. Also denies hallucinations, and delusions pt has hx of psychiatric disorder, depression, and insulin dependent diabetes. Her BG levels have frequently fluctuated since her stay here. Objective Vitals Vital Signs Date Time Temp Pulse Resp B/P (MAP) Pulse Ox O2 Delivery O2 Flow Rate FiO2 04/30/17 05:46 98.2 60 17 137/65 (89) 04/29/17 19:40 98.4 74 18 131/62 (85) I/O 04/29/17 04/29/17 04/29/17 04/30/17 04/30/17 04/30/17 07:00 15:00 23:00 07:00 15:00 23:00 Intake Total 60 ml 480 ml 361 ml 840 ml Balance 60 ml 480 ml 361 ml 840 ml Intake Oral 60 ml 480 ml 361 ml 840 ml # Voids 3 5 Result Diagram: 04/30/17 0847 Objective Remarks pt is a 76 y.o female who appears stated age. She is dressed in hospital gown. She looks neat and clean. She speaks in broken [place] and does answer questions appropriately. Her mood is euthymic and her affect is congruent with her mood. A/P Assessment and Plan 1. Depression Discharge Planning pt seems table enough to be discharged. Placement should be sought since daughter and son in-law refuse to have her back at home. Lexi Brown M3 Apr 30, 2017 13:13
--- NOTE | 2017-04-30 14:03 | HHI.PYPN ---
Subjective Remarks Patient seen today with medical student kelly and nurse Evelyn, patient had good weekend is calm cooperative denying suicidality homicidality voices or visions. Is a compliant with her medications. At this point I feel patient has reached maximum benefit of this hospitalization psychiatrically. Though when considering the lability and severity of her diabetic issues I do need to have the medicine service ever medically cleared prior to discharge. I did order that for today hopefully they will respond then can discharge the patient tomorrow to return home with her family Chief Complaint: patient depressed but compliant medications Trental overdosed on all her me Review of Systems Except as stated in HPI: all other systems reviewed are Neg Mental Status Examination Appearance: Appropriate Consciousness: Alert Orientation: Person, Place, Date/Time Motor Activity: Other (patient uses walker) Speech: Unremarkable Language: Adequate Fund of Knowledge: Poor Attention and Concentration: Other (fair) Memory: Impaired Mood: Sad Affect: Other (decreased range and intensity) Thought Process & Associations: Linear Thought Content: Appropriate Hallucination Type: None (denies) Delusion Type: None Suicidal Ideation: Yes (made vague suicidal statements to family, denies today) Suicidal Plan: No (denies today) Suicidal Intention: No (denies) Homicidal Ideation: No Homicidal Plan: No Homicidal Intention: No Insight: Poor Judgment: Poor Results Labs Test 04/30/17 08:47 Blood Urea Nitrogen 17 MG/DL Creatinine 0.93 MG/DL Random Glucose 339 MG/DL Calcium Level 9.1 MG/DL Sodium Level 135 MEQ/L Potassium Level 4.8 MEQ/L Chloride Level 99 MEQ/L Carbon Dioxide Level 27.2 MEQ/L Anion Gap 9 MEQ/L Estimat Glomerular Filtration Rate 59 ML/MIN Vitals/IOs Vital Signs Date Time Temp Pulse Resp B/P (MAP) Pulse Ox O2 Delivery O2 Flow Rate FiO2 04/30/17 05:46 98.2 60 17 137/65 (89) 04/29/17 06:07 96 Intake and Output 04/30/17 04/30/17 05/01/17 08:00 16:00 00:00 Intake Total 721 ml 480 ml Balance 721 ml 480 ml Assessment & Plan Problem List: (1) Major depressive disorder, recurrent episode, severe ICD Codes: F33.2 - Major depressive disorder, recurrent severe without psychotic features Assessment & Plan Estimated LOS: days patient mood is improving, she is compliant with medications and no behavior problems. Denying suicidality of voices. We'll attempt to get medical clearance for tomorrow plan to discharge patient tomorrow to her family Justification for Cont. Inpt. Hopefully will discharge patient tomorrow but only if get appropriate medical clearance Discharge Planning Consider discharge tomorrow once we get medical clearance Request HC Surrog/Guard Advoc?: No Juan Jose Vaughan MD Apr 30, 2017 14:03
[2017-04-30 18:00] VITALS: BP 131/63; PULSE 66; RESP 17; TEMP 98.1; O2SAT 97
[2017-04-30] MEDS: REMOVE OLD LIDOCAINE PATCH T-DERMAL SCH (21:00)
[2017-04-30] MEDS ORDERED: INSULIN DETEMIR 100 UNITS/ML VIAL SQ SCH (21:00)
[2017-04-30] MEDS: lamoTRIgine 100 MG TAB PO SCH (21:16)
[2017-05-01 06:00] VITALS: BP 178/79; PULSE 68; RESP 17; TEMP 97.8; O2SAT 98
[2017-05-01] MEDS: INSULIN DETEMIR 100 UNITS/ML VIAL SQ SCH (08:00)
[2017-05-01] MEDS: INSULIN ASPART 1,000 UNITS/10 ML VIAL SQ SCH ×3 (08:00→16:13)
[2017-05-01] MEDS: INSULIN ASPART SUPPLEMENTAL SCALE SQ SCH ×4 (08:00→21:34)
[2017-05-01] MEDS: LIDOCAINE HCL 5% PATCH T-DERMAL SCH (09:00)
[2017-05-01] MEDS: METOPROLOL TARTRATE 50 MG TAB PO SCH ×2 (09:20→21:33)
[2017-05-01] MEDS: ASPIRIN 81 MG CHEW TAB CHEW SCH (09:20)
[2017-05-01] MEDS: lamoTRIgine 25 MG TAB PO SCH (09:20)
[2017-05-01] MEDS: DOCUSATE SODIUM 50 MG/SENNA 8.6 MG TAB PO SCH ×2 (09:20→21:33)
--- NOTE | 2017-05-01 11:45 | HHI.PYPN ---
Subjective Remarks Patient seen today in dayroom with floor staff, chart review, patient compliant medications. Patient calm pleasant with me is somewhat more focused. Now states she is willing to back home with her family. All they consider perhaps other placement issues. However we do need the medical services medical clearance recommendations for her diabetic treatment before we discharge her. Chief Complaint: patient depressed but compliant medications Trental overdosed on all her me Review of Systems Except as stated in HPI: all other systems reviewed are Neg Mental Status Examination Appearance: Appropriate Consciousness: Alert Orientation: Person, Place, Date/Time Motor Activity: Other (patient uses walker) Speech: Unremarkable Language: Adequate Fund of Knowledge: Poor Attention and Concentration: Other (fair) Memory: Impaired Mood: Sad Affect: Other (decreased range and intensity) Thought Process & Associations: Linear Thought Content: Appropriate Hallucination Type: None (denies) Delusion Type: None Suicidal Ideation: Yes (made vague suicidal statements to family, denies today) Suicidal Plan: No (denies today) Suicidal Intention: No (denies) Homicidal Ideation: No Homicidal Plan: No Homicidal Intention: No Insight: Poor Judgment: Poor Results Vitals/IOs Vital Signs Date Time Temp Pulse Resp B/P (MAP) Pulse Ox O2 Delivery O2 Flow Rate FiO2 05/01/17 06:00 97.8 68 17 178/79 (112) 98 Intake and Output 05/01/17 05/01/17 05/02/17 08:00 16:00 00:00 Intake Total 360 ml Balance 360 ml Assessment & Plan Problem List: (1) Major depressive disorder, recurrent episode, severe ICD Codes: F33.2 - Major depressive disorder, recurrent severe without psychotic features Assessment & Plan Estimated LOS: days patient mood improving she is more reactive and appropriate less. She denies suicidality homicidality voices or visions. We await medical clearance prior to discharging her Justification for Cont. Inpt. At this time patient ready for discharge with this is contingent upon medical clearance which we are awaiting Discharge Planning To return to family. Once patient medically cleared for discharge Request HC Surrog/Guard Advoc?: No Juan Jose Vaugahn MD May 01, 2017 11:45
--- NOTE | 2017-05-01 13:40 | HHI.PR ---
Subjective Remarks Follow up visit uncontrolled diabetes. Patient seen and examined today and dining area. States she is doing fine ambulating with walker. States her glucose was 300 after do bingo. As per RN, prices for Bingo were sweets and they have the tray with the patient before they do get a chance to check the blood glucose. Denies pain and discomfort. Denies SOB/ dyspnea. Denies chest pain, palpitations, headaches, dizziness. Denies fevers, chills, n/v/d. Objective Vitals Vital Signs Date Time Temp Pulse Resp B/P (MAP) Pulse Ox O2 Delivery O2 Flow Rate FiO2 05/01/17 06:00 97.8 68 17 178/79 (112) 98 04/30/17 18:00 98.1 66 17 131/63 (85) 97 I/O 04/30/17 04/30/17 04/30/17 05/01/17 05/01/17 05/01/17 07:00 15:00 23:00 07:00 15:00 23:00 Intake Total 361 ml 840 ml 870 ml 1080 ml Balance 361 ml 840 ml 870 ml 1080 ml Intake Oral 361 ml 840 ml 630 ml 1080 ml Tube Feeding 240 ml # Voids 5 8 2 Result Diagram: 04/30/17 0847 Objective Remarks GENERAL: This is a well-nourished, well-developed patient, in no apparent distress. SKIN: Warm and dry. HEENT: Normocephalic. Pupils equal round and reactive. Nose without bleeding. Airway patent. NECK: Trachea midline. No JVD. Supple. CARDIOVASCULAR: Regular rate and rhythm with murmurs, no gallops, or rubs. RESPIRATORY: Clear to auscultation. Breath sounds equal bilaterally. No wheezes , rales, or rhonchi. GASTROINTESTINAL: Abdomen soft, non-tender, nondistended. Bowel Sounds normoactive x4. MUSCULOSKELETAL: Extremities without clubbing, cyanosis, or edema. NEUROLOGICAL: Awake and alert. Oriented to time, place, person. No focal neuro deficit. Moves all extremities. Normal speech. Procedures None A/P Problem List: (1) Diabetes ICD Code: E11.9 - Type 2 diabetes mellitus without complications (2) Hyperlipidemia ICD Code: E78.5 - Hyperlipidemia, unspecified (3) Hypertension ICD Code: I10 - Essential (primary) hypertension (4) History of CVA (cerebrovascular accident) ICD Code: Z86.73 - Personal history of transient ischemic attack (TIA), and cerebral infarction without residual deficits (5) Major depressive disorder, recurrent episode, severe ICD Code: F33.2 - Major depressive disorder, recurrent severe without psychotic features Assessment and Plan 76-year-old female with diabetes, hypertension, dyslipidemia, history of CVA, schizophrenia and bipolar disorder admitted under [place] act for suicidal ideation. Psychiatric disorder Depression - Management per psychiatric team Hypertension, chronic - Adequately controlled - Continue home medications - Continue to monitor BP Diabetes, uncontrolled - HgbA1c 11.2 - Adjust Levemir dose to 25 units at night, maintain day time dose at 30 units. - Prandial insulin 4 units. Keep low ISS. - Continue Accu-Cheks. Monitor for hypoglycemia - Continue diabetic diet - Patient may continue with the Levemir dose 20 units at night and 30 units in the morning and discharged with prandial insulin 4 units on Discharge. She needs to follow-up with Dr. Schwartz her PCP for better monitoring of her blood sugars. Patient declines to use insulin pump. GLO on ?CKD - Creatinine trending down. Today's labs pending - Unknown baseline - Avoid nephrotoxic agents - Encourage po intake - continue to monitor kidney function Hyperkalemia - Potassium trending up, K 5.9. Kayexalate ordered. - continue low K diet. Discussed with patient decreasing dietary sources of potassium. - Potassium within normal Left sided back pain - likely musculoskeletal - trial Lidoderm patch - application of moist heat prn - on ibuprofen will decrease dose secondary to CKD DVT prophylaxis - Patient is ambulatory Discussed with patient, nursing, Dr. Chatterjee Discharge Planning Patient may continue with her insulin dose. She needs to follow-up with Dr. Schwartz her PCP for better monitoring of her blood sugars. Patient declines to use insulin pump. Evan Espino May 01, 2017 13:40
[2017-05-01] MEDS ORDERED: LEVEMIR SQ ×2 (14:36→14:38)
[2017-05-01] MEDS ORDERED: NOVOLOGP2 SQ (14:36)
[2017-05-01] MEDS ORDERED: IBUPROFEN 400 MG TAB PO PRN (14:45)
[2017-05-01 18:00] VITALS: BP 166/82; PULSE 71; RESP 18; TEMP 97.7; O2SAT 99
[2017-05-01] MEDS ORDERED: INSULIN DETEMIR 100 UNITS/ML VIAL SQ SCH (21:00)
[2017-05-01] MEDS: REMOVE OLD LIDOCAINE PATCH T-DERMAL SCH (21:00)
[2017-05-01] MEDS: lamoTRIgine 100 MG TAB PO SCH (21:33)
[2017-05-02 05:56] VITALS: BP 140/70; PULSE 63; RESP 15; TEMP 98.1; O2SAT 97
[2017-05-02] MEDS: INSULIN ASPART 1,000 UNITS/10 ML VIAL SQ SCH ×2 (07:58→11:36)
[2017-05-02] MEDS: INSULIN DETEMIR 100 UNITS/ML VIAL SQ SCH (07:58)
[2017-05-02] MEDS: INSULIN ASPART SUPPLEMENTAL SCALE SQ SCH ×2 (07:59→11:37)
[2017-05-02] MEDS ORDERED: LAMO100 PO (08:52)
[2017-05-02] MEDS ORDERED: LAMO25 PO (08:52)
[2017-05-02] MEDS ORDERED: LIDO5DIS5 T-DERMAL (08:52)
[2017-05-02] MEDS ORDERED: METO-309 PO (08:52)
--- NOTE | 2017-05-02 09:00 | HHI.DS ---
Psychiatry Discharge Summary Inpatient Psychiatric care?: Yes Advance Directive: No Reason Not Provided: Due to Patient Condition Mental Health AdvanceDirective: No Health Care Proxy: No Admission Admission Date Apr 25, 2017 at 03:20 Admission Diagnosis: (1) Major depressive disorder, recurrent episode, severe ICD Code: F33.2 - Major depressive disorder, recurrent severe without psychotic features Brief History Patient is 76 year-old female who comes in under Kidd act signed by Shanae Granda from [facility] dated 04/24/17 and 18 over 3 hours that document reviewed and is states that patient through all of her psych meds away today patient denies this but pretends not to be able to speak Armenian when probed further despite whole interview in Armenian. 2 grandkids at bedside confirms patient threw away her psych meds. She has told them that she plans to lock herself in a closet and not come out. Told 3 grandkids that she plans to take all of her pills. Patient seen screened in that facility urine toxicology negative alcohol level negative. Patient transferred here for further care. This is patient's first contact with [facility]. At the present time patient sitting quietly in her room counselor Gabby present throughout session. Patient calm pleasant speaking broken Armenian. She is distraught and depressed. It appears the patient came down here from the [facility] last May after suffering a stroke and having a pacemaker placed in her. She is living now with her daughter and daughter's granddaughter and as patient states 2 or 3 great- grandchildren. Patient states she does not speak much to her daughter. Patient became more tearful when she talked with the of her . Above that affected her. She denies suicidality to me. Vague about any voices. She is vague about past psychiatric hospitalizations in the [facility] that appears somebody put her on Lamictal and trazodone. States she did have some positive results from that. In any event at the present time patient does meet criteria for involuntary psychiatric hospitalization under the Kidd act I'll do first opinion request second opinion left with this time she does have capacity to sign for medications. We need to gather further information and confirm the accuracy of are present information. Will call patient's family attempt to arrange a meeting for about 1 PM tomorrow afternoon the meantime patient will be admitted. We will a hospitalist consult will thus. Above PT also see her will out of the standard medications would refrain from any psychotropics into her gather further information. The patient is a 76-year-old [place] woman, domiciled, , but , with psychiatric history of bipolar disorder, she is on medications, no previous suicidal attempts, who was brought to the hospital on the Kidd act due to suicidal ideation. Patient says she came to the hospital due to "a brake down". She says she feels much better now. She denies SI/HI/VH/AH. Tobacco Use In Past 30 Days: No Tobacco Past 30 Days Alcohol Use: Never Hospital Course Patient's hospital course was uneventful her depression vigilance isolation slowly softened with her developing alliance with the staff in the milieu, and her compliant with medication. Is able to make her wishes known better even through the language issues. She's been compliant with the medications. She now denies suicidality homicidality voices or visions. At this time patient reached maximum benefit of this hospitalization. She to be discharged today to her family, she has been medically cleared related to her diabetic management. She is to follow-up with [facility] medication management and with her PCP for diabetic management Results Blood Pressure 140 / 70 Vital Signs Date Time Temp Pulse Resp B/P (MAP) Pulse Ox O2 Delivery O2 Flow Rate FiO2 05/02/17 05:56 98.1 63 15 140/70 (93) 97 Laboratory Tests Test 04/30/17 08:47 Random Glucose 339 MG/DL (74-106) Sodium Level 135 MEQ/L (136-145) Estimat Glomerular Filtration Rate 59 ML/MIN (>89) Laboratory Results Test 04/25/17 10:12 Cholesterol Level 184 MG/DL (120-200) HDL Cholesterol 51.0 MG/DL (40.0-60.0) Hemoglobin A1c 11.2 % (4.3-6.0) LDL Cholesterol 106 MG/DL (0-99) Triglycerides Level 134 MG/DL (42-150) Summary of Procedures None done Pending results at discharge: No Medications # of Antipsychotic meds at D/C: 0 Approp Antipsych med options 1 - Minimum of three failed multiple trials of monotherapy. 2 - Documented plan to taper to monotherapy due to previous use of multiple meds OR cross-taper in progress at D/C. 3 - Documentation of augmentation of Clozapine. 4 - Justification other than those listed in allowable values 1-3, document here : Discharge Discharge Date: May 02, 2017 Discharge Diagnosis: (1) Major depressive disorder, recurrent episode, severe Diagnosis: Principal ICD Code: F33.2 - Major depressive disorder, recurrent severe without psychotic features Pt Condition on Discharge: Stable Discharge Disposition: Discharge Home Discharge Instructions Diet Instructions: Diabetic Diet Additional Diet Instructions: 1800-calorie Activities you can perform: Regular-No Restrictions Scheduled Appointment: Shaun Islas Discharge Time > 30 minutes Mental Status Examination Appearance: Appropriate Consciousness: Alert Orientation: Person, Place, Date/Time Motor Activity: Other (patient uses walker) Speech: Unremarkable Language: Adequate Fund of Knowledge: Poor Attention and Concentration: Other (fair) Memory: Impaired Mood: Sad Affect: Other (decreased range and intensity) Thought Process & Associations: Linear Thought Content: Appropriate Hallucination Type: None (denies) Delusion Type: None Suicidal Ideation: Yes (made vague suicidal statements to family, denies today) Suicidal Plan: No (denies today) Suicidal Intention: No (denies) Homicidal Ideation: No Homicidal Plan: No Homicidal Intention: No Insight: Poor Judgment: Poor Discharge/Advance Care Plan Health Problems: (1) Major depressive disorder, recurrent episode, severe Goals to promote your health * To prevent worsening of your condition and complications * To maintain your health at the optimal level Directions to meet your goals Take your medications as prescribed Follow your dietary instruction Follow activity as directed Keep your appointments as scheduled Take your immunizations and boosters as scheduled If your symptoms worsen call your PCP, if no PCP go to Urgent Care Center or Emergency Room For 05/02 questions related to your inpatient stay or results of tests pending at discharge, please contact Dr. Juan Jose Vaughan at Smoking is Dangerous to Your Health. Avoid second hand smoking Juan Jose Vaughan MD May 02, 2017 09:00
[2017-05-02] MEDS: DOCUSATE SODIUM 50 MG/SENNA 8.6 MG TAB PO SCH (09:04)
[2017-05-02] MEDS: METOPROLOL TARTRATE 50 MG TAB PO SCH (09:05)
[2017-05-02] MEDS: lamoTRIgine 25 MG TAB PO SCH (09:05)
[2017-05-02] MEDS: ASPIRIN 81 MG CHEW TAB CHEW SCH (09:05)
[2017-05-02] MEDS: LIDOCAINE HCL 5% PATCH T-DERMAL SCH (09:43)
== END 2017-05-02 13:45 | disposition home or self-care (01) | DRG 885 ==
LOC: H250 03:20
PROVIDERS: ADMIT Psychiatry & Neurology Psychiatry; ATTEND Psychiatry & Neurology Psychiatry
DX: F33.2 Major depressive disorder, recurrent severe without psychotic features (principal); N17.9 Acute kidney failure, unspecified; E11.22 Type 2 diabetes mellitus with diabetic chronic kidney disease; E11.649 Type 2 diabetes mellitus with hypoglycemia without coma; R45.851 Suicidal ideations; E11.65 Type 2 diabetes mellitus with hyperglycemia; E78.00 Pure hypercholesterolemia, unspecified; M54.6 Pain in thoracic spine; I12.9 Hypertensive chronic kidney disease with stage 1 through stage 4 chronic kidney disease, or unspecified chronic kidney disease; N18.9 Chronic kidney disease, unspecified; E87.5 Hyperkalemia; Z95.0 Presence of cardiac pacemaker; Z86.73 Personal history of transient ischemic attack (TIA), and cerebral infarction without residual deficits; Z90.710 Acquired absence of both cervix and uterus
CPT/HCPCS: 80048; 80053; 80061; 81001; 82947; 82948; 83036; 83735; 84100; 84132; 84439; 84443; 85025; J1815